=== PATIENT | male | born 1975 | race Caucasian/White ===

== ENCOUNTER 2022-03-31 08:29 | Day surgery (SDC) | payer BC, SELFPAY ==
[2022-03-31] VITALS (15 sets, daily range): BP systolic 116–165; BP diastolic 80–112; PULSE 77–88; RESP 16–18; TEMP 36.2–36.6; O2SAT 10–100; BMI 45.9
[2022-03-31] MEDS: LACTATED RINGERS 1000 ML 1,000 ML 100 ML IV ×2 (09:00→13:01)
[2022-03-31] MEDS: SODIUM CHLORIDE 0.9 % (FLUSH) 10 ML SYRINGE IVF (09:23)
[2022-03-31] MEDS: BUPIVACAINE 0.25 %/EPI 1:200K 30 ml 10 ML INJECTION (11:20)
[2022-03-31] MEDS: COCAINE HCL 4 % 4 ML SOLUTION NOSTRIL-B (11:22)
[2022-03-31] MEDS: MUPIROCIN 1 GM PACKET 1 APPLIC TOPICAL (11:22)
[2022-03-31] MEDS: OXYMETAZOLINE 0.05% NASAL SPRAY 2 SPRAY NOSTRIL-B (11:23)
--- NOTE | 2022-03-31 11:49 | W.PM.ENTPROC ---
Procedure Note Date of procedure: 03/31/22 Procedure: Preoperative diagnosis Nasal obstruction, deviated septum, inferior turbinate hypertrophy, obstructive sleep apnea, intolerance of nasal CPAP Postoperative diagnosis same Procedure nasal septoplasty, submucous partial resection inferior turbinates Under general endotracheal anesthesia patient was prepped draped usual fashion. The nose was decongested and injected. A right hemitransfixion incision was made left anterior and posterior tunnels were created. 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 The redundant cartilage was removed with a 15 blade and the bone removed with a chisel. Area 3 inferiorly on the right was a premaxillary spur this was also resected. A large piece of cartilage was placed into the intraseptal space. The septum was now midline. A stab incision was made in the anterior head of the left inferior turbinate a tunnel created with a Gilchrist dissector. A very conservative anterior submucous resection was performed. The Coblation was used for hemostasis and to cauterize more posteriorly intramurally inferiorly. This was repeated on the right side in identical fashion. The hemitransfixion was closed with 2 4-0 chromic sutures. Silastic stents were secured with 3-0 nylon. Small nasal airways were trimmed and placed in nasal cavity on each side. The patient procedure well was taken recovery in satisfactory condition. Blood loss during procedure was less than 25 mL. Complications 0 Surgeon: Jake Gaming MD
--- NOTE | 2022-03-31 12:01 | W.ANESCHARGE ---
Anesthesia Charges Start Date/Time Anesthesia Start Date: 03/31/22 Anesthesia Start Time: 11:04 Stop Date/Time Anesthesia Stop Date: 03/31/22 Anesthesia Stop Time: 12:00 Summary Emergency: No
--- NOTE | 2022-03-31 15:34 | PC.NURSE ---
pt came to floor 1210. ? alert and orientated x4.? he is eating, drinking. ? minimal drainage.? IV is patent.? he drank 700 cc.? he is eating jello and pudding. ? he was up walking. ? 1430 he asked to go home. ? called and updated Dr. Smith and ok for pt to go home.? went over discharge packet with pt and pt and walked out with all belongings and paperwork.?
== END 2022-03-31 15:20 | disposition home or self-care (01) ==
PROVIDERS: PCP Emergency Medicine; Visit Provider Otolaryngology
PROC: (CPT 30520; principal; 2022-03-31 10:00)
DX: J34.2 Deviated nasal septum (principal); J34.3 Hypertrophy of nasal turbinates; G47.33 Obstructive sleep apnea (adult) (pediatric); J34.89 Other specified disorders of nose and nasal sinuses
CPT/HCPCS: 30520; 30140; 00160; A9270; J1100; J2405; J2704; J3010; J3490; J7120

== ENCOUNTER 2022-04-12 11:16 | Outpatient (CLI) | payer BC, SELFPAY ==
[2022-04-12 22:24] LABS: Chloride* 107 mmol/L (96-114)
[2022-04-12 22:25] LABS: Potassium* 4.4 mmol/L (3.6-5.1); Sodium* 139 mmol/L (135-149)
[2022-04-12 22:27] LABS: Creatinine* 0.8 mg/dL (0.5-1.5); Estimated Glomerular Filt Rate 110 ml/min
[2022-04-12 22:28] LABS: Blood Urea Nitrogen* 13 mg/dL (5-24); Calcium* 9.2 mg/dL (8.4-10.6); Carbon Dioxide* 25 mmol/L (20-32); Glucose* 83 mg/dL (60-115)
== END 2022-04-12 11:17 | disposition home or self-care (01) ==
LOC: LKVREF 11:16
PROVIDERS: PCP Emergency Medicine; Visit Provider Emergency Medicine
DX: I10 Essential (primary) hypertension (principal)
CPT/HCPCS: 80048

== ENCOUNTER 2022-07-05 08:00 | Outpatient (CLI) | payer BC, SELFPAY | END 2022-07-05 08:01 | disposition home or self-care (01) | PROVIDERS: PCP Emergency Medicine; Referring Provider Emergency Medicine; Visit Provider Emergency Medicine | DX: Z00.00 Encounter for general adult medical examination without abnormal findings (principal); I10 Essential (primary) hypertension; Z13.6 Encounter for screening for cardiovascular disorders; Z13.1 Encounter for screening for diabetes mellitus | CPT/HCPCS: 80053; 80061 ==

== ENCOUNTER 2022-08-16 07:57 | Outpatient (CLI) | payer BC, SELFPAY | END 2022-08-16 07:58 | disposition home or self-care (01) | LOC: NFLDREF 08-17 10:56 | PROVIDERS: PCP Emergency Medicine; Referring Provider Emergency Medicine; Visit Provider Emergency Medicine | DX: B35.1 Tinea unguium (principal) | CPT/HCPCS: 80076 ==

== ENCOUNTER 2023-08-02 08:49 | Outpatient (CLI) | payer BC, SELFPAY | END 2023-08-02 08:50 | disposition home or self-care (01) | PROVIDERS: PCP Emergency Medicine; Visit Provider Emergency Medicine | DX: Z00.00 Encounter for general adult medical examination without abnormal findings (principal); I10 Essential (primary) hypertension; Z13.6 Encounter for screening for cardiovascular disorders; Z13.1 Encounter for screening for diabetes mellitus; Z68.42 Body mass index [BMI] 45.0-49.9, adult | CPT/HCPCS: 80053; 80061 ==